=== PATIENT | female | born 2000 | race Two or more races ===

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

== ENCOUNTER → 2022-08-01 13:49 | Outpatient (BNVA) | payer OTHER, SELFPAY | PROVIDERS: PCP Hospitalist; Visit Provider Advanced Practice Midwife | DX: Z30.09 Encounter for other general counseling and advice on contraception (principal); G43.909 Migraine, unspecified, not intractable, without status migrainosus | CPT/HCPCS: 99202 ==

== ENCOUNTER 2023-02-22 10:11 | Outpatient (AMB) | payer OTHER, SELFPAY ==
--- NOTE | 2023-02-22 10:59 | AM.OFFWIN_ITS ---
Intake Vital Signs 02/22/23 11:06 Height 5 ft 3 in Weight 42.184 kg BMI 16.5 BP 100/60 Blood Pressure Location Lt brachial Position Sitting Pulse 70 Pulse Source Pulse Oximeter Temp 97.7 F Temp Source Temporal Artery Scan Intake Visit Reasons: EP Late on Period Intake Note: Pt is here c/o being late on her period for more than two weeks. Pt states she is sexually active and is not currently on control. Pt states she has a burning sensation when urinating. Patient Tobacco Use Status: Never used Tobacco Allergies No Known Allergies Allergy (Verified 02/22/23 11:05) Do you need a note to return to daycare/school/sports/work: No HPI HPI Comments History of Present Illness Details 22-year-old female presents with dysuria and abnormal menstrual cycle. She does not report fevers, chills, abdominal pain, nausea, vomiting, weakness or fatigue. 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 Female Reproductive History Menstrual Age of Menarche: 14 Review of Systems Const Details: Constitutional: No Fever, No Chills Cardiovascular: No Chest Pain, No SOB Respiratory: No Cough, No Dyspnea Gastrointestinal: No Nausea, No Vomiting, No Diarrhea, No abdominal Pain Genitourinary: Positive Dysuria, No Hematuria, positive abnormal menstrual cycle, positive white vaginal discharge Musculoskeletal: No joint pain, No Myalgias, No Joint Swelling Skin: No Skin lacerations, No rash Neuro: No Weakness, No Dizziness, No Headache All systems reviewed & are unremarkable except as noted in HPI and below Physical Exam Vital Signs: Last Vital Signs Temp 97.7 F 02/22/23 11:06 Pulse 70 02/22/23 11:06 BP 100/60 02/22/23 11:06 BMI result Body Mass Index 16.5 Appearance: Alert. Oriented X3. No acute distress. Eyes: Pupils equal, round and reactive to light. Neck: Normal inspection. Neck supple. CVS: Normal heart rate and rhythm. Pulses normal. Respiratory: No respiratory distress. Breath sounds normal. Skin: Skin warm and dry. Normal skin color. Normal skin turgor. Extremities: No lower extremity edema. Gait well balanced well coordinated. Neuro: No motor deficit. No sensory deficit. Cranial nerves 2-12 intact. Results AMB Test Urine AMB Test Urine Negative Last Edit by Zenaida Jacobson CMA on 02/22 11:01 AMB Urinalysis, Automated UA Leukoctes 15 Renata/uL Last Edit by Zenaida Jacobson, JEWELL on 02/22/23 11:23 UA Nitrite Negative Last Edit by Zenaida Jacobson, JEWELL on 02/22/23 11:23 UA Urobilinogen 0.2 mg/dL Last Edit by Zenaida Jacobson, JEWELL on 02/22/23 11:23 UA Protein 30 mg/dL Last Edit by Zenaida Jacobson, JEWELL on 02/22/23 11:23 UA pH 6.0 Last Edit by Zenaida Jacobson CMA on 02/22/23 11:23 UA Blood 200 Ellis/uL Last Edit by Zenaida Jacobson, JEWELL on 02/22/23 11:23 UA Specific [place] 1.030 Last Edit by Zenaida Jacobson CMA on 02/22/23 11:2 3 UA Ketone Negative Last Edit by Zenaida Jacobson CMA on 02/22/23 11:23 UA Bilirubin 0 mg/dL Last Edit by Zenaida Jacobson CMA on 02/22/23 11:23 UA Glucose 0 mg/dL Last Edit by Zenaida Jacobson CMA on 02/22/23 11:23 Results Reviewed Results Reviewed: Laboratory Last Values Urine pH (Auto) 6.0 02/22/23 11:00 Specific [place] (Auto) 1.030 02/22/23 11:00 Urine Protein (Auto) 30 mg/dL 02/22/23 11:00 Glucose (UA)(Auto) 0 mg/dL 02/22/23 11:00 Urine Ketones (Auto) Negative 02/22/23 11:00 Urine Blood (Auto) 200 Ellis/uL 02/22/23 11:00 Urine Nitrite (Auto) Negative 02/22/23 11:00 Urine Bilirubin (Auto) 0 mg/dL 02/22/23 11:00 Urine Urobilinogen (Auto) 0.2 mg/dL 02/22/23 11:00 Leukocyte Esterase (Auto) 15 Renata/uL 02/22/23 11:00 Tst Clinic Negative 02/22/23 11:00 Assessment & Plan Assessment & Plan (1) Dysuria: Code(s): R30.0 - Dysuria Plan: 22-year-old female presents with irregular menstrual cycle. States that she was on p.o. control for several months, discontinued it due to side effects. States that she has had a menstrual cycle as been abnormal for approximately 2 weeks now and noticeable white clumpy discharge. Urinalysis is positive for UTI, plan of care is to treat for UTI with cefuroxime, and suspected yeast infection with Diflucan. Patient respectfully declines pelvic exam at this time. Will add on CT NG. I did discuss control method alternatives, including IUD placement. HCG urinalysis is negative. Will treat with cefuroxime, Pyridium, and Diflucan. Patient does understand that she cannot drink alcohol while taking these medications. Patient verbalized understanding of discharge instructions. Verbalized understandings of signs and symptoms indicating need for emergent intervention. Orders: Orders AMB HCG Urine Test Today Z32.02 - Encounter for test, result negative AMB Urinalysis Automated Today Z13.9 - Encounter for screening, unspecified CT NG by PCR Today R30.0 - Dysuria Medications: New cefuroxime axetil 500 mg PO Q12H 14 tabs 0RF 7 days phenazopyridine (Pyridium) 100 mg PO TID PRN 6 tabs 0RF pain 6 doses fluconazole (Diflucan) 150 mg PO Q3D 3 tabs 0RF 3 days Patient Instructions: You were evaluated for dysuria and vaginal discharge. Urinalysis is positive for UTI. Please take cefuroxime 500 mg every 12 hours for the next 7 days. For suspected candidiasis infection, take Diflucan 150 mg tablet today. If yeast like symptoms persist throughout antibiotic use, take another tablet on day 5, and on the completion of antibiotics. In total you will have 3 tablets of Diflucan. You must not drink any alcohol with this medication. You will have severe side effects if you drink alcohol with this medication. Consider following up with [facility] for IUD placement. Your lab results are pending. We will call you with your results. Thank you for choosing this urgent care for evaluation. Please follow-up with primary care physician as needed. Return to the emergency department for any new, concerning, or worsening symptoms. Coding Level of Care Code Est Pt Level 3 (03927) Diagnoses Dysuria R30.0
[2023-02-22 11:06] VITALS: BP 100/60; PULSE 70; TEMP 36.5; BMI 16.5
== END 2023-02-22 12:55 | disposition home or self-care (01) ==
PROVIDERS: PCP Hospitalist; Visit Provider Nurse Practitioner Family
DX: R30.0 Dysuria (principal); Z32.02 Encounter for pregnancy test, result negative
CPT/HCPCS: 81003; 81025; 99213

== ENCOUNTER 2023-02-22 16:51 | Outpatient (REF) | payer OTHER, SELFPAY ==
[2023-02-22 18:41] LABS: CT PCR NOT DETECTED (Not Detect.); NG PCR NOT DETECTED (Not Detect.)
== END 2023-02-22 16:52 | disposition home or self-care (01) ==
LOC: HO.LNP 16:51
PROVIDERS: Visit Provider Nurse Practitioner Family
DX: R30.0 Dysuria (principal)
CPT/HCPCS: 0353U

== ENCOUNTER 2023-10-04 12:10 | Outpatient (AMB) | payer OTHER, SELFPAY ==
[2023-10-04 12:15] VITALS: BP 100/44; PULSE 69; O2SAT 96; BMI 16.2
--- NOTE | 2023-10-04 12:15 | A.OFFPC_ITS ---
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 Tx by [facility] who rec she get IUD. She does not want this. reports unprotected sex with one partner. Does not want to get preg. Using pull out method. Has period right now Reports scoliosis. No surgery. Does not hurt. DAY and MDD. No meds in past or counseling. Passive suicidal thoughts wo plan. denies hx of attempts of psych admissions. when she feels this way she goes to her fav spot in [place], near the water. She feels connected to water and feels better. admits poor relationship w/ food. was heavier about 2 yrs ago. thought she was eating too much. stopped eating for a period of time to lose wt. then went back to eating just one meal per day, dinner. admits purging. admits body image issues - negative self talk. [facility] Medical History (Updated 10/04/23 @ 13:14 by ELE Adair) Migraines Surgical History (Updated 10/04/23 @ 12:46 by Karis Rosas CMA) No pertinent past surgical history Family History (Updated 10/04/23 @ 12:45 by Karis Rosas CMA) Father Diabetes Other Mental health disorder Social History (Updated 10/04/23 @ 12:47 by Karis Rosas CMA) Household Members: Family Both parents involved: Yes Housing: House Are you a primary property caretaker to a significant other at home: No Do you presently have visiting nurse or other home services: No 75 years or older and lives alone: No Alcohol intake: never Patient Tobacco Use Status: Never used Tobacco e-Cigarette/Vaping Use: Never Used Substance Use Type: Marijuana service: No Current occupational status: employed 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 1. Little interest or pleasure in doing things: more than half the days 2. Feeling down, depressed, or hopeless: more than half the days 3. Trouble falling or staying asleep, or sleeping too much: several days 4. Feeling tired or having little energy: not at all 5. Poor appetite or overeating: nearly every day 6. Feeling bad about yourself - or that you are a failure or have let yourself or your family down: nearly every day 7. Trouble concentrating on things, such as reading the newspaper or watching television: not at all 8. Moving or speaking so slowly that other people could have noticed. Or the opposite - being so fidgety or restless that you have been moving around a lot more than usual: not at all 9. Thoughts that you would be better off or of hurting yourself in some way: nearly every day Total score: 14 Depression Screening Interpretation: Positive Depression Screening Done: Yes 91980 - PHQ-9 Billing: Yes Source: Developed by Drs. Leonidas Tidwell, Inge Anthony, Prakash Langston and colleagues, with an educational koki from [employer]. Thrive Questionnaire Date Thrive assessed: 10/04/23 I am a: Patient What is your living situation today?: I have a steady place to live Within the past 12 months, did the food you bought not last and you didn't have the money to get more?: Never true Within the past 12 months, did you worry whether your food would run out before you got money to buy more?: Never true Do you have trouble paying for medicines?: No Do you have trouble getting transportation to medical appointments?: No Do you have trouble paying your heating and electricity bill?: Yes Do you have trouble taking care of your child, family member or friend?: No Do you have trouble with day-to-day activities such as bathing, preparing meals, shopping, managing finances, etc.?: No Are you currently unemployed and looking for a job?: No Are you interested in more education?: No Please select the resources that you would like help with: Utilities Currently or been in a relationship where the following occur: controlled financially THRIVE Score: 2 AUDIT C Alcohol Use Questionnaire (AUDIT-C) 1. How often do you have a drink containing alcohol?: Never 2. How many drinks containing alcohol do you have on a typical day when you are drinking?: 1 or 2 3. How often do you have six or more drinks on one occasion?: Never Total Score: 0 Score Reviewed/Action Taken: Yes DAY-7 AMB Questionnaire DAY-7 Feeling nervous, anxious, or on edge: 3 = Nearly every day Not being able to stop or control worryin = Nearly every day Worrying too much about different things: 2 = More than half the days Trouble relaxin = More than half the days Being so restless that it is hard to sit still: 2 = More than half the days Becoming easily annoyed or irritable: 3 = Nearly every day Feeling afraid as if something awful might happen: 3 = Nearly every day Total DAY-7 score (0-4 normal; 5-9 mild; 10-14 moderate; 15-21 severe): 18 Source: Developed by Drs. Leonidas Tidwell, Inge Anthony, Prakash Langston and colleagues, with an educational koki from [employer]. DAY-7 Assessment Billing DAY-7 Assessment Tool: DAY-7 Assessment 92287 Review of Systems Const All systems reviewed & are unremarkable except as noted in HPI and below Physical exam (Primary Care) Vital Signs: Last Vital Signs BP 100/44 L 10/04/23 12:15 Pulse Ox 96 10/04/23 12:15 Oxygen Delivery Method Room Air 10/04/23 12:15 BMI result Body Mass Index 16.2 BMI Assessment/Plan discussion: Low BMI Low, Plan discussed: other Tobacco/Smoking Status: Tobacco use Status Patient Tobacco Use Status Never used Tobacco 10/04/23 12:26 e-Cigarette/Vaping Use Never Used 10/04/23 12:26 PHQ-9: PHQ-9 Score PHQ-9: Total score 14 10/04/23 12:42 Depression Screening Interpretation: Positive Currently or been in a relationship where the following occur: controlled financially Const Other: awake alert, thin and frail Mucous membranes dry RRR LS CTAB dim throughout Abd soft, mild tenderness LLQ wo rebound, normoactive bs x 4 Quiet, soft spoken, crying at times, anxious,appropriate and polite Assessment and Plan Assessment & Plan (1) MDD (major depressive disorder), recurrent episode: Comment: check labs today and bring back in 1 week for close f/u referral to counseling crisis hot line Code(s): F33.9 - Major depressive disorder, recurrent, unspecified Qualifiers: Major depression episode severity: moderate Qualified Code(s): F33.1 - Major depressive disorder, recurrent, moderate (2) DAY (generalized anxiety disorder): Comment: see MDD Code(s): F41.1 - Generalized anxiety disorder (3) Underweight on examination: Comment: with eating disorder behaviors of restriction and binging. check labs bring back in 1 week refer to counseling Code(s): R63.6 - Underweight (4) Vaginal yeast infection: Comment: check labs to r/o diabetes Code(s): B37.31 - Acute candidiasis of vulva and vagina Plan: Total time spent caring for the patient today was 60 minutes. This includes time spent before the visit reviewing the chart, time spent during the visit, and time spent after the visit on documentation Total time spent caring for the patient today was [] minutes. This includes time spent before the visit reviewing the chart, time spent during the visit, and time spent after the visit on documentation Orders: Orders LDL Cholesterol Direct Today F33.9 - Major depressive disorder, recurrent, unspecified, F41.1 - Generalized anxiety disorder Microalbumin, Random (w Creat) Today F33.9 - Major depressive disorder, recurrent, unspecified, F41.1 - Generalized anxiety disorder Zinc Today F33.9 - Major depressive disorder, recurrent, unspecified, F41.1 - Generalized anxiety disorder Vitamin B12 and Folate Today F33.9 - Major depressive disorder, recurrent, unspecified, F41.1 - Generalized anxiety disorder Magnesium Today F33.9 - Major depressive disorder, recurrent, unspecified, F41.1 - Generalized anxiety disorder HIV Ab/Ag Today F33.9 - Major depressive disorder, recurrent, unspecified, F41.1 - Generalized anxiety disorder Comprehensive Met. Panel Today F33.9 - Major depressive disorder, recurrent, unspecified, F41.1 - Generalized anxiety disorder Vitamin D 1,25 dihydroxy Today F33.9 - Major depressive disorder, recurrent, unspecified, F41.1 - Generalized anxiety disorder Complete Blood Count no Diff Today F33.9 - Major depressive disorder, recurrent, unspecified, F41.1 - Generalized anxiety disorder IRON PROFILE Today F33.9 - Major depressive disorder, recurrent, unspecified, F41.1 - Generalized anxiety disorder Vitamin C Today F33.9 - Major depressive disorder, recurrent, unspecified, F41.1 - Generalized anxiety disorder Hemoglobin A1c Today F33.9 - Major depressive disorder, recurrent, unspecified, F41.1 - Generalized anxiety disorder UA and rflx microscopic Today F33.9 - Major depressive disorder, recurrent, unspecified, F41.1 - Generalized anxiety disorder Referrals Counseling Referral F33.9 - Major depressive disorder, recurrent, unspecified, F41.1 - Generalized anxiety disorder Patient Instructions: Crisis Hotlines Suicide prevention, domestic violence, and other crisis hotlines for youth, young adults, and their friends and families. [facility] [employer] [facility]: The [employer] [facility] helps youth who have run away, are thinking about running away, or who already ran away but are ready to come home. Parents and guardians can also contact the hotline if they are worried about their child running away or if their child has already left home. The hotline is available 24 hours a day, seven days a week. Youth, parents, and guardians can also use the online chat feature on the [facility] website to ask for help and get support, [place] [address]. [facility] National Suicide Prevention Lifeline: The National Suicide Prevention Lifeline is a network of local crisis centers that are available 04/02 to provide support for youth and adults who are in any kind of emotional crisis. In addition to the main hotline number listed above, there are several other numbers to call depending on your needs: Eritrean Language: Deaf and Hard of Hearin1-862.414.1545 Veterans: Disaster Distress: Anyone can also use their online chat feature on their website. National Suicide Prevention Lifeline [facility] Helpline: The [facility] Helpline is available to anyone in [place] who is need of emotional support. Anyone can call or text the helpline to receive help from specially trained volunteers. [place] high school and college students can also get online support through the [employer]_ program. For high school students, volunteers ages 15-18 are available Saturday- from 6-9PM. For college students, [employer] is available Saturday-Saturday from 5-9PM. The [employer] - The [employer] is a 04/02 crisis intervention and suicide prevention hotline for LGBTQ youth. Youth can also text [employer] to for support, or use the online chat feature on the [employer]'s website. [employer] is available Saturday-Saturday between 3-10PM. [employer] is available seven days a week between 3-10PM. Safe[employer]: SafeLink is for anyone who is being affected by domestic violence or dating violence. Volunteers at [employer] speak Irish and Eritrean, and [employer] also has a service that can provide translation in more than 130 languages. TTY: Coding Level of Care Code Est Pt Level 5 (55165) Diagnoses Moderate episode of recurrent major depressive disorder F33.1 Major depression episode severity: moderate DAY (generalized anxiety disorder) F41.1 Underweight on examination R63.6 Vaginal yeast infection B37.31 Additional Codes DAY-7 Assessment Billing - DAY-7 Assessment Tool: DAY-7 Assessment [id number] ([id number])
== END 2023-10-04 12:51 | disposition home or self-care (01) ==
PROVIDERS: PCP Family Medicine; Visit Provider Nurse Practitioner Family
DX: F33.1 Major depressive disorder, recurrent, moderate (principal); F41.1 Generalized anxiety disorder; R63.6 Underweight; B37.31 Acute candidiasis of vulva and vagina
CPT/HCPCS: 99215

== ENCOUNTER 2023-10-04 12:42 | Outpatient (REF) | payer OTHER, SELFPAY | END 2023-10-04 12:43 | disposition home or self-care (01) | LOC: HO.WFDLDS 12:42 | PROVIDERS: Visit Provider Nurse Practitioner Family | DX: Z13.89 Encounter for screening for other disorder (principal) ==

== ENCOUNTER 2024-10-14 08:16 | Outpatient (AMB) | payer OTHER, SELFPAY ==
--- NOTE | 2024-10-14 08:18 | A.OFFPC_ITS ---
Vital Signs 10/14/24 08:23 Height 5 ft 4 in Weight 96 lb BMI 16.5 BP 99/56 L Blood Pressure Location Rt brachial Position Sitting Respiration 16 Pulse 70 Pulse Source Pulse Oximeter Temp 98.2 F Temp Source Oral Pulse Oximetry (%) 100 Oxygen Delivery Method Room Air Intake Visit Reasons: Annual PE Intake Note: patient here for CPE Director Long Term Care Required: No Is last menstrual period known: Yes Last menstrual period: 09/16/24 Post menopausal: No Patient : No Allergies No Known Allergies Allergy (Verified 10/14/24 08:31) Medication List - Last Reconciled 10/14/24 by SHWETHA Adair- No Known Home Meds Tobacco use date assessed: 10/14/24 Dental Screening Dental Screen Date: 10/14/24 Did you have a dental visit in the last 12 months?: No Did you have a dental problem in the last 6 months where you did not have access to dental care?: No Was dental information given to patient?: Patient has dentist HPI HPI Comments History of Present Illness Details 23-year-old female with migraines, scoli osis, MDD, DAY, underweight, scoliosis Social: brother & sister; lives w/ Mom. 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 Eyes: wore glasses in childhood, poor vision; needs new eye exam LMP 1 month; denies chance of preg Has some burning after intercourse. Also has some abd pain after intercourse Would like STD screening Plan urine HCG negative today. Start prozac 10 mg QD Refer back to counseling Flu and Tdap today Opto referral Labs and STD testing RTO 6 week fu prozac start, sooner PRN An additional 30 minutes was spent addressing the problem(s) noted at todays visit. This includes time spent before the visit reviewing the chart, time spent during the visit, and time spent after the visit on documentation reviewing laboratory results, diagnostic imaging, medications, performing a medically necessary evaluation, counseling on diagnoses, care coordination, ordering appropriate tests, ordering appropriate medications, review of tests performed by other providers, reporting test results with the patient, communication with other healthcare providers. [facility], [facility] Medical History (Updated 10/14/24 @ 08:52 by Jessica Kaufman [facility]) Migraines Surgical History (Updated 10/04/23 @ 12:46 by Karis Rosas CMA) No pertinent past surgical history Family History (Updated 10/04/23 @ 12:45 by Karis Rosas CMA) Father Diabetes Other Mental health disorder Social History (Updated 10/04/23 @ 12:47 by Karis Rosas CMA) Household Members: Family Housing: House Are you a primary memory care program director to a significant other at home: No Do you presently have visiting nurse or other home services: No Alcohol intake: never Patient Tobacco Use Status: Never used Tobacco e-Cigarette/Vaping Use: Never Used Substance Use Type: Marijuana service: No Current occupational status: employed 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 1. Little interest or pleasure in doing things: not at all 2. Feeling down, depressed, or hopeless: several days 3. Trouble falling or staying asleep, or sleeping too much: several days 4. Feeling tired or having little energy: several days 5. Poor appetite or overeating: not at all 6. Feeling bad about yourself - or that you are a failure or have let yourself or your family down: nearly every day 7. Trouble concentrating on things, such as reading the newspaper or watching television: not at all 8. Moving or speaking so slowly that other people could have noticed. Or the opposite - being so fidgety or restless that you have been moving around a lot more than usual: not at all 9. Thoughts that you would be better off or of hurting yourself in some way: several days Total score: 7 Depression Screening Interpretation: Positive Depression Screening Follow-up: Existing condition and Community Mental Health Worker F/U Depression Screening Done: Yes 23237 - PHQ-9 Billing: Yes Source: Developed by Drs. Leonidas Tidwell, Inge Anthony, Prakash Langston and colleagues, with an educational koki from [employer]. Thrive Questionnaire Date Thrive assessed: 10/14/24 I am a: Patient What is your living situation today?: I have a steady place to live Within the past 12 months, did the food you bought not last and you didn't have the money to get more?: Often true Within the past 12 months, did you worry whether your food would run out before you got money to buy more?: Often true Do you have trouble paying for medicines?: I choose not to answer this question Do you have trouble getting transportation to medical appointments?: No Do you have trouble paying your heating and electricity bill?: I choose not to answer this question Do you have trouble taking care of your child, family member or friend?: No Do you have trouble with day-to-day activities such as bathing, preparing meals, shopping, managing finances, etc.?: No Are you currently unemployed and looking for a job?: No Are you interested in more education?: No Please select the resources that you would like help with: Food Currently or been in a relationship where the following occur: I choose not to answer THRIVE Score: 2 AUDIT C Alcohol Use Questionnaire (AUDIT-C) 1. How often do you have a drink containing alcohol?: Monthly or less 2. How many drinks containing alcohol do you have on a typical day when you are drinking?: 1 or 2 3. How often do you have six or more drinks on one occasion?: Never Total Score: 1 Score Reviewed/Action Taken: Yes DAY-7 AMB Questionnaire DAY-7 Date DAY - 7 assessed: 10/14/24 Feeling nervous, anxious, or on edge: 1 = Several days Not being able to stop or control worryin = Several days Worrying too much about different things: 1 = Several days Trouble relaxin = Nearly every day Being so restless that it is hard to sit still: 1 = Several days Becoming easily annoyed or irritable: 3 = Nearly every day Feeling afraid as if something awful might happen: 0 = Not at all Total DAY-7 score (0-4 normal; 5-9 mild; 10-14 moderate; 15-21 severe): 10 Source: Developed by Drs. Leonidas Tidwell, Inge Anthony, Prakash Langston and colleagues, with an educational koki from [employer]. DAY-7 Assessment Billing DAY-7 Assessment Tool: DAY-7 Assessment 47574 Physical exam (Primary Care) Vital Signs: Last Vital Signs Temp 98.2 F 10/14/24 08:23 Pulse 70 10/14/24 08:23 Resp 16 10/14/24 08:23 BP 99/56 L 10/14/24 08:23 Pulse Ox 100 10/14/24 08:23 Oxygen Delivery Method Room Air 10/14/24 08:23 BMI result Body Mass Index 16.5 BMI Assessment/Plan discussion: Low BMI Low, Plan discussed: other Tobacco/Smoking Status: Tobacco use Status Tobacco use date assessed 10/14/24 10/14/24 08:25 Patient Tobacco Use Status Never used Tobacco 10/14/24 08:21 e-Cigarette/Vaping Use Never Used 10/14/24 08:21 PHQ-9: PHQ-9 Score PHQ-9: Total score 7 10/14/24 08:59 Depression Screening Interpretation: Positive Depression Screening Follow-up: Existing condition and Community Mental Health Worker F/U Thrive Assessment: Date of Thrive Assessment Date Thrive assessed 10/14/24 10/14/24 08:25 Currently or been in a relationship where the following occur: I choose not to answer Const Other: General: Thin frail. Appears stated age. Head: Normocephalic, atraumatic. Eyes: Pupils are equal, round and reactive to light and accommodation. Conjunctivae are clear. Vision grossly normal. Ears: TMs clear AU, EACS WNL Nose: Patent, without discharge. Mouth: There are no ulcers or lesions noted. No inflammation, no post nasal drip, no plaques nor exudates. c/o pain over L TMJ Neck: Supple, no adenopathy or thyromegaly. Lungs: Clear to auscultation bilaterally. No rales, rhonchi or wheeze noted. Good air flow in all cash. Heart: Regular rate and rhythm. No murmurs, click, rubs or gallops are noted. Abdomen: Bowel sounds present in all quadrants. The abdomen is soft, nontender, with no masses or organomegaly noted. No hernias are noted. Musculoskeletal: Joints are nontender, without swelling, redness, or effusions. Range of motion is observed to be normal. Pulses: Peripheral pulses are equal and palpable bilaterally. Extremities: No clubbing, cyanosis nor edema is noted. Neurologic: Gait and station normal. Cranial Nerves 2-12 intact. Motor strength grossly symmetrical and intact. No sensory loss. Balance normal. Skin: No rashes, ulcers, or lesions noted. Turgor is good. Skin color is good. Hair and nails are without abnormalities. Psych: Gaurded, soft spoken Office Procedures Flu Questionnaire Does the patient have a severe egg allergy?: No Does the patient have severe life threatening allergies?: No Does the patient have a fever or illness today?: No Has the patient ever had Guillain-[place] Syndrome?: No Has the patient ever had any past reaction to a flu shot?: No Results AMB Test Urine AMB Test Urine Negative Last Edit by Richelle Kilgore MA on 5 09:26 Immunizations Fluarix Triv [id number] (PF) 45 mcg (15 mcg x 3)/0.5 mL IM syringe Performing Provider: ELE Adair Performing Location: [facility] [place] [facility] Administered by: Adelaida Arrington RN on 10/14/24 08:57 Dose Route Admin Location Dispensed Lot Number Expiration Date [facility] Administrative Secretary 0.5 mL IM Left Deltoid 0.5 mL [id number] 01/11/25 99012-129-12 [employer] VIS Given Date VIS Provided VIS Publication Date 10/14/24 Single Vaccine 21 Eligibility Eligibility Date Funding Source Not [facility] Eligible 10/14/24 Private Administration Comments: Patient received two vaccines in the left deltoid. Flu shot first and the TDaP below and slightly to the right. Boostrix Tdap 2.5 Lf unit-8 mcg-5 Lf/0.5 mL intramuscular syringe Performing Provider: ELE Adair Performing Location: [facility] [place] Family [facility] Administered by: Adelaida Arrington RN on 10/14/24 08:57 Dose Route Admin Location Dispensed Lot Number Expiration Date [facility] Administrative Secretary 0.5 mL IM Left Deltoid 0.5 mL [id number] 10/03/26 82655-134-25 Patient Conversation [employer] VIS Given Date VIS Provided VIS Publication Date 10/14/24 Single Vaccine 21 Eligibility Eligibility Date Funding Source Not [facility] Eligible 10/14/24 Private Administration Comments: Patient received two vaccines in the left deltoid. Flu shot first and the TDaP below and slightly to the right. Results Reviewed Results Reviewed: Laboratory Last Values [facility] Negative 10/14/24 09:21 Coding Level of Care Code Est Pt Level 4 (18029) Est Pt Prev Care 18-39y(93789) Diagnoses Encounter for general adult medical examination with abnormal findings Z00.01 DAY (generalized anxiety disorder) F41.1 Moderate episode of recurrent major depressive disorder F33.1 Major depression episode severity: moderate Underweight on examination R63.6 Dysuria R30.0 Influenza vaccination administered at current visit Z23 Need for Tdap vaccination Z23 Encounter for screening examination for sexually transmitted disease Z11.3 Arthralgia of left temporomandibular joint M26.622 Laterality: left Additional Codes DAY-7 Assessment Billing - DAY-7 Assessment Tool: DAY-7 Assessment 38201 ([id number]) PHQ-9 - 80452 - PHQ-9 Billing: Yes ([id number]) Assessment & Plan Assessment & Plan (1) Encounter for general adult medical examination with abnormal findings: Code(s): Z00.01 - Encounter for general adult medical examination with abnormal findings (2) DAY (generalized anxiety disorder): Comment: see MDD Code(s): F41.1 - Generalized anxiety disorder Category: Medical (3) MDD (major depressive disorder), recurrent episode: Code(s): F33.9 - Major depressive disorder, recurrent, unspecified Category: Medical Qualifiers: Major depression episode severity: moderate Qualified Code(s): F33.1 - Major depressive disorder, recurrent, moderate (4) Underweight on examination: Comment: with eating disorder behaviors of restriction and binging. refer to counseling Code(s): R63.6 - Underweight Category: Medical (5) Dysuria: Code(s): R30.0 - Dysuria Category: Medical (6) Influenza vaccination administered at current visit: Code(s): Z23 - Encounter for immunization Category: Medical (7) Need for Tdap vaccination: Code(s): Z23 - Encounter for immunization Category: Medical (8) Encounter for screening examination for sexually transmitted disease: Code(s): Z11.3 - Encounter for screening for infections with a predominantly sexual mode of transmission Category: Medical (9) TMJ arthralgia: Comment: wear mouth guard OTC NSaids FU with dentist avoid clenching Code(s): M26.629 - Arthralgia of temporomandibular joint, unspecified side Category: Medical Qualifiers: Laterality: left Qualified Code(s): M26.622 - Arthralgia of left temporomandibular joint Plan . Orders: Orders Comprehensive Met. Panel Today R30.0 - Dysuria Hemoglobin A1c Today R30.0 - Dysuria Microalbumin, Random (w Creat) Today R30.0 - Dysuria Complete Blood Count no Diff Today R30.0 - Dysuria CT NG by PCR Today R30.0 - Dysuria Lipid Panel Today R30.0 - Dysuria TSH reflex Free T4 Today R30.0 - Dysuria Vitamin B12 and Folate Today R30.0 - Dysuria Vitamin D 25-OH Total Today R30.0 - Dysuria Ferritin Today R30.0 - Dysuria UA CC w/rflx Micro + Cult Today R30.0 - Dysuria Influenza [id number] Immunization Today Z23 - Encounter for immunization TDaP Immunization Today Z23 - Encounter for immunization AMB HCG Urine Test Today Z32.02 - Encounter for test, result negative Referrals Optometry Referral H53.8 - Other visual disturbances Nurse Navigator Referral F33.1 - Major depressive disorder, recurrent, mod erate, F41.1 - Generalized anxiety disorder WEB OPERATIONS SPECIALIST Referral Z12.4 - Encounter for screening for malignant neoplasm of cervix Medications: New fluoxetine (Prozac) 10 mg PO DAILY 30 caps 1RF Patient Instructions: Health screenings for women You should visit your health care provider from time to time, even if you are healthy. The purpose of these visits is to: Screen for medical issues Assess your risk for future medical problems Encourage a healthy lifestyle Update vaccinations and other preventive care services Help you get to know your provider in case of an illness Information Even if you feel fine, you should still see your provider for regular checkups. These visits can help you avoid problems in the future. For example, the only way to find out if you have high blood pressure is to have it checked regularly. High blood sugar and high cholesterol levels also may not have any symptoms in the early stages. A simple blood test can check for these conditions. There are specific times when you should see your provider or receive specific health screenings. The [place] Preventive Services Task Force publishes a list of recommended screenings. Below are screening guidelines for women ages 18 to 39. BLOOD PRESSURE SCREENING Your blood pressure should be checked at least once every 3 to 5 years if: Your blood pressure is in the normal range (top number less than 120 mm Hg and bottom number less than 80 mm Hg) You don't have risk factors for high blood pressure Ask your provider if you need your blood pressure checked more often if: The top number is 120 to 129 mm Hg or the bottom number is 70 to 79 mm Hg You have diabetes, heart disease, kidney problems, are overweight, or have certain other health conditions You have a first-degree relative with high blood pressure You are Black You had high blood pressure during a If the top number is 130 mm Hg or greater or the bottom number is 80 mm Hg or greater, this is considered stage 1 hypertension. Schedule an appointment with your provider to learn how you can reduce your blood pressure. Watch for blood pressure screenings in your area. Ask your provider if you can stop in to have your blood pressure checked. BREAST CANCER SCREENING Experts do not agree about the benefits of breast self-exams in finding breast cancer or saving lives. Talk to your provider about what is best for you. A screening mammogram is not recommended for most women under age 40. Your provider may discuss and recommend mammograms, MRI scans, or ultrasounds if you have an increased risk for breast cancer, such as: A mother or sister who had breast cancer at a young age (most often starting screening earlier than the age the close relative was diagnosed) You carry a high-risk genetic marker CERVICAL CANCER SCREENING Cervical cancer screening should start at age 21 years unless your provider advises otherwise. After the first test: Women ages 21 through 29 should have a Pap test every 3 years. Exoprts do not agree on whether HPV testing is recommended for this age group. Women ages 30 through 65 should be screened with either a Pap test every 3 years or the HPV test every 5 years or both tests every 5 years (called cotesting ). Women who have been treated for precancer (cervical dysplasia) should continue to have Pap tests for 20 years after treatment or until age 65, whichever is longer. If you have had your uterus and cervix removed (total hysterectomy), and you have not been diagnosed with cervical cancer or precancer (high grade cervical neoplasia), you do not need cervical cancer screening. CHOLESTEROL SCREENING Cholesterol screening should begin at: Age 45 for women with no known risk factors for coronary heart disease Age 20 for women with known risk factors for coronary heart disease Repeat cholesterol screening should take place: Every 5 years for women with normal cholesterol levels More often if changes occur in lifestyle (including weight gain and diet) More often if you have diabetes, heart disease, kidney problems, or certain other conditions DIABETES SCREENING You should be screened for diabetes starting at age 35 and then repeated every 3 years if you have no risk factors for diabetes. Screening may need to start earlier and be repeated more often if you have other risk factors for diabetes, such as: You have a first degree relative with diabetes. You are overweight or have obesity. You have high blood pressure, prediabetes, or a history of heart disease. Screening for diabetes should be done if you are planning to become and you are overweight and have other risk factors such as high blood pressure. DENTAL EXAM Go to the dentist once or twice every year for an exam and cleaning. Your dentist will evaluate if you need more frequent visits. EYE EXAM Have an eye exam every 5 to 10 years before age 40. If you have vision problems, have an eye exam every 2 years or more often if recommended by your provider. You should have an eye exam that includes an examination of your retina (back of your eye) at least every year if you have diabetes. IMMUNIZATIONS Commonly needed vaccines include: Flu shot: get one every year. COVID-19 vaccine: ask your provider what is best for you. Tetanus-diphtheria and acellular pertussis (Tdap) vaccine: have one at or after age 19 as one of your tetanus-diphtheria vaccines if you did not receive it as an adolescent. Tetanus-diphtheria: have a booster (or Tdap) every 10 years. Varicella vaccine: receive 2 doses if you never had chickenpox or the varicella vaccine. Hepatitis B vaccine: receive 2, 3, or 4 doses, depending on your exact circumstances. Measles, mumps, and rubella (MMR) vaccine: receive 1 to 2 doses if you are not already immune to MMR. Your provider can tell you if you are immune. Ask your provider about the human papillomavirus (HPV) vaccine if: You have not received the HPV vaccine in the past You have not completed the full vaccine series (you should catch up on this shot) Ask your provider if you should receive other immunizations if you have certain health problems that increase your risk for some diseases such as pneumonia. INFECTIOUS DISEASE SCREENING Women who are sexually active should be screened for chlamydia and gonorrhea up until age 25. Women 25 years and older should be screened for chlamydia and gonorrhea if at high risk. Screening for hepatitis C: All adults ages 18 to 79 should get a one-time test for hepatitis C. people should be screened at every . Screening for human immunodeficiency virus (HIV): All people ages 15 to 65 should get a one-time test for HIV. Depending on your lifestyle and medical history, you may also need to be screened for infections such as syphilis and HIV, as well as other infections. PHYSICAL EXAM All adults should visit their provider from time to time, even if they are healthy. The purpose of these visits is to: Screen for disease Assess your risk of future medical problems Encourage a healthy lifestyle Update your vaccinations and other preventive care services Maintain a relationship with a provider in case of an illness Your height, weight, and BMI should be checked at every exam. During your exam, your provider may ask you about: Depression and anxiety Diet and exercise Alcohol and tobacco use Safety issues, such as using seat belts, smoke detectors, and intimate partner violence Your medicines and risk for interactions SKIN SELF-EXAM Your provider may check your skin for signs of skin cancer, especially if you're at high risk, such as if you: Have had skin cancer before Have close relatives with skin cancer Have a weakened immune system OTHER SCREENING Talk with your provider about colon cancer screening if you have a strong family history of colon cancer or polyps, or if you have had inflammatory bowel disease or polyps yourself. Routine bone density screening of women under 40 is not recommended.
[2024-10-14 08:23] VITALS: BP 99/56; PULSE 70; RESP 16; TEMP 36.8; O2SAT 100; BMI 16.5
--- OUTSIDE RECORDS SUMMARY | 2024-10-14 08:28 | XMS_ITS | Encounter Summary ---
Author Organization [facility] Address [address] [place] [address] Phone Care Team Providers Care Teacher Dramatics Name Role Phone Gail Mari NP Primary Care Provider [phone] Encounter Details Date Type Department Care Team (Late st Contact Info) Description 02/28/2017 Conversion Encounter [facility] - [address] [id number] Social History Tobacco Use Types Packs/Day Years Used Date Smoking Tobacco: Never Comments:Never smoker Comments Unknown Sex and Gender Information Value Date Recorded Sex Assigned at Not on file Legal Sex Female 5:02 PM EDT Gender Identity Not on file Sexual Orientation Not on file documented as of this encounter Plan of Treatment Not on file documented as of this encounter Visit Diagnoses Not on filedocumented in this encounter Care Teams Teacher Dramatics Relationship Specialty Start Date End Date Gail Mari NP PCP - General 02/22/17 08/11/20 documented as of this encounter
--- OUTSIDE RECORDS SUMMARY | 2024-10-14 08:28 | XMS_ITS | Encounter Summary ---
Author Organization [facility] Address [address] [place], [place] [id number] Phone Care Team Providers Care Poultry Husbandry Worker Name Role Phone Gail Mari NP Primary Care Provider [phone] Encounter Details Date Type Department Care Team (Late st Contact Info) Description 09/09/2014 Documentation [facility] [place] [address] [place] [address] Family Medicine, Physician [address] [place] [address] Social History Tobacco Use Types Packs/Day Years Used Date Smoking Tobacco: Never Assessed Comments Unknown Sex and Gender Information Value Date Recorded Sex Assigned at Not on file Legal Sex Female 5:02 PM EDT Gender Identity Not on file Sexual Orientation Not on file documented as of this encounter Plan of Treatment Not on file documented as of this encounter Visit Diagnoses Not on filedocumented in this encounter Care Teams Poultry Husbandry Worker Relationship Specialty Start Date End Date Gail Mari NP PCP - General 02/22/17 08/11/20 documented as of this encounter
--- OUTSIDE RECORDS SUMMARY | 2024-10-14 08:28 | XMS_ITS | Clinical Summary ---
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 Immunizations Immunization Administration Dates Next Due DTaP 5 03/04/2007, 4,05/18/2003,03/22,01/11/2003 H1N1 06/14/2009 HPV Vaccine 9 Valent 09/07/2016,08/25/2015 Hep A, ped/adol 08/25/2015,08/03/2014 Hep B, ped/adol 05/18/2003,03/16/2003,01/11/2003 Hib (PRP-T) 02/08/2004,03/16/2003,01/11/2003 IPV 03/04/2007, 3,03/22/2003,01/11 Influenza, injectable, MDCK, preservative free, quadrivalent 09/07/2016 Influenza, injectable, quadrivalent 08/03/2014 Influenza, injectable, quadr ivalent, preservative free 05/11/2020,11/11/2018,11/08/2017 Influenza, injectable, trivalent 010,07/07/2008,06/10/2007,06/10,05/07/2006 Influenza, intranasal, quadrivalent 08/25/2015 Influenza, intranasal, trivalent 06/29/2011,03/15 MMR 03/04/2007,11/08/2003 Meningococcal Conj (Menactra) MCV4P 11/11/2018,0 08/03/2014 Pneumococcal Conjugate 02/08/2004,03/16/2003, Tdap 08/03/2014 Varicella 03/04/2007,11/08/2003 Family History Medical History Relation Name Comments Seizures Brother Christopher Sharma No Known Problems Father Nikita Sharma No Known Problems Mother Leeann Mercado No Known Problems Sister Parvin Sharma Relation Name Status Comments Brother Christopher Sharma Alive Brother: Seiz ure disorder Father Nikita Sharma Alive Mother Leeann Mercado Alive Mother: Migraines Other Family history of Diabetes mellitus Sister Parvin Sharma Alive Sister: Alive a nd well Social History Tobacco Use Types Packs/Day Years Used Date Smoking Tobacco: Never Smokeless Tobacco: Never Tobacco Cessation:Counseling Given: Yes Comments:Never smoker Alcohol Use Standard Drinks/Week Comments Never 0 (1 standard drink = 0.6 oz pur e alcohol) Hunger/Food Answer Date Recorded In the last 12 months, did y ou or your family ever eat less than you felt you should because there wasn't enough money for food? No 05/11/2020 Stable Housing Answer Date Recorded Are you worried that in the next 2 months you may not have stable housing? No 05/11/2020 Transportation Concerns Answer Date Rec orded In the last 12 months, have you or your family ever had to go without healthcare because you didn't have a way to get there? No 05/11/2020 Hazards in Home Answer Date Recorded Think about the place you li ve. Do you have problems with any of the following? Pests (mice or roaches), mold, no/not working smoke detectors, water leaks, no window guards. No 2019 Financing Utilities Answer Date Recorde d In the last 12 months, has t he electric, gas, oil, or water company threatened to shut off your services in your home? No 05/11/2020 Safety at Home Answer Date Recorded Are you or your family worried about feeling saf e in your home? No 05/11/2020 Outside Support Answer Date Recorded Do you feel that you need mo re support from other people or programs to help you care for yourself or your family? No 05/11/2020 Understanding Health Concerns Answer Da te Recorded Do you need help understandi ng your or your child's healthcare needs (diagnosis, medications, plan, etc.)? No 05/11/2020 Financing Health Concerns Answer Date R ecorded In the last 12 months, was t here a time when your child needed to see a doctor or get medications or supplies but could not because of cost? No 05/11/2020 Missing School or Work Answer Date Salbador rded Did you or your child miss s chool or work because of a health problem that could have been avoided? No 05/11/2020 Comments No Sex and Gender Information Value Date Recorded Sex Assigned at Not on file Legal Sex Female 5:02 PM EDT Gender Identity Not on file Sexual Orientation Not on file Last Filed Vital Signs Vital Sign Reading Time Taken Comments Blood Pressure 102/64 05/11/2020 1:40 PM EDT Pulse 70 05/11/2020 1:40 PM EDT Temperature 36 ??C (96.8 ??F) 05/11/2020 1:40 PM EDT Respiratory Rate - - Oxygen Saturation - - Inhaled Oxygen Concentration - - Weight 44.9 kg (99 lb) 05/11/2020 1:40 PM EDT Height 161.9 cm (5' 3.75 ) 05/11/2020 1:40 PM ED T Body Mass Index 17.13 05/11/2020 1:40 PM EDT Plan of Treatment Health Maintenance Due Date Last Done Comments Men B Vaccine (1 of 2 - Standard) 2018 Influenza Vaccines (#1) 2024 05/11/20, 11/11/2018, 11/08/2017, Additional history exists COVID-19 Vaccine (3 - 2023-2 5 season) 2024 12/07/2020, 11/16/2020 DTaP,Tdap,and Td Vaccines (7 - Td or Tdap) 08/03/2024 08/03/2014, 03/04/2007, 02/08/2004, Additional history exists Hepatitis B Vaccines Completed 05/18/2003, 03/16/2003, 01/11/2003 HIB Vaccines Completed 02/08/2004, 08/2002, 01/11/2003 Pneumococcal Vaccine Completed 02/08/2004, 03/16/2003, 01/11/2003 IPV Vaccines Completed 03/04/2007, 10/2002, 03/22/2003, Additional history exists MMR Vaccines Completed 03/04/2007, 11/08/2003 Varicella Vaccines Completed 03/04/2007, 11/08/2003 Hepatitis A Vaccines Completed 08/25/2015, 08/03/19 15 HPV Vaccines Completed 09/07/2016, 08/25/2015 Meningococcal Vaccine Completed 11/11/2018, 015 Insurance [facility] NON PCC
--- OUTSIDE RECORDS SUMMARY | 2024-10-14 08:28 | XMS_ITS | Encounter Summary ---
Author Organization [facility] Address [address] [place], [place] [id number] Phone Care Team Providers Care Paint Trimmer Pipe Bowls Name Role Phone Gail Mari NP Primary Care Provider [phone] Encounter Details Date Type Department Care Team (Late st Contact Info) Description 01/04/2012 Documentation [facility] [place] [address] [place] [address] Family Medicine, Physician [address] [place] [address] Social History Tobacco Use Types Packs/Day Years [...] on filedocumented in this encounter Care Teams Paint Trimmer Pipe Bowls Relationship Specialty Start Date End Date Gail Mari NP PCP - General 02/22/17 08/11/20 documented as of this encounter
== END 2024-10-14 09:20 | disposition home or self-care (01) ==
LOC: HO.HMCFM 08:17
PROVIDERS: PCP Nurse Practitioner Family; Visit Provider Nurse Practitioner Family
DX: Z00.01 Encounter for general adult medical examination with abnormal findings (principal); R30.0 Dysuria; F41.1 Generalized anxiety disorder; F33.1 Major depressive disorder, recurrent, moderate; R63.6 Underweight; Z23 Encounter for immunization; Z11.3 Encounter for screening for infections with a predominantly sexual mode of transmission; M26.622 Arthralgia of left temporomandibular joint; Z32.02 Encounter for pregnancy test, result negative

== ENCOUNTER 2024-10-14 08:16 | Outpatient (REF) | payer OTHER, SELFPAY ==
--- OUTSIDE RECORDS SUMMARY | 2024-10-14 09:19 | XMS_ITS | Encounter Summary ---
Author Organization [facility] Address [address] [place], [place] [address] Phone Care Team Providers Care County Judge Name Role Phone Gail Mari NP Primary Care Provider [phone] Encounter Details Date Type Department Care Team (Late st Contact Info) Description 09/09/[address] [facility] [place] Family Medicine [address] [place] [address] Family Medicine, Physician [address] [place] [address] Social History Tobacco Use Types Packs/Day Years [...] on filedocumented in this encounter Care Teams County Judge Relationship Specialty Start Date End Date Gail Mari NP PCP - General 02/22/17 08/11/20 documented as of this encounter
--- OUTSIDE RECORDS SUMMARY | 2024-10-14 09:19 | XMS_ITS | Encounter Summary ---
Author Organization [facility] Address [address] [place] [address] Phone Care Team Providers Care Field Artillery Senior Sergeant Name Role Phone Gail Mari NP Primary Care Provider [phone] Encounter Details Date Type Department Care Team (Late st Contact Info) Description 02/28/2017 Conversion Encounter [facility] - [address] [address] Social History Tobacco Use Types Packs/Day Years [...] on filedocumented in this encounter Care Teams Field Artillery Senior Sergeant Relationship Specialty Start Date End Date Gail Mari NP PCP - General 02/22/17 08/11/20 documented as of this encounter
--- OUTSIDE RECORDS SUMMARY | 2024-10-14 09:19 | XMS_ITS | Encounter Summary ---
Author Organization [facility] Address [address] [place], [place] [address] Phone Care Team Providers Care Carpenter Refrigerator Name Role Phone Gail Mari NP Primary Care Provider [phone] Encounter Details Date Type Department Care Team (Late st Contact Info) Description 01/04/2012 [place] [facility] [place] [address] [place] [address] Family Medicine, Physician [address] [place] [address] Social History Tobacco Use Types Packs/Day Years [...] on filedocumented in this encounter Care Teams Carpenter Refrigerator Relationship Specialty Start Date End Date Gail Mari NP PCP - General 02/22/17 08/11/20 documented as of this encounter
--- OUTSIDE RECORDS SUMMARY | 2024-10-14 09:19 | XMS_ITS | Clinical Summary ---
Author Organization [facility] Address [address] [place] [address] Phone Care Team Providers Care Bakery And Deli Sales Manager Name Role Phone Unavailable Primary Care Provider [...] 08/25/2015 Meningococcal Vaccine Completed 11/11/2018, 015 Insurance [facility] NON PCC
== END 2024-10-14 08:17 | disposition home or self-care (01) ==
LOC: HO.LAB 08:16
PROVIDERS: PCP Nurse Practitioner Family; Visit Provider Nurse Practitioner Family
DX: Z00.01 Encounter for general adult medical examination with abnormal findings (principal); Z23 Encounter for immunization; F41.1 Generalized anxiety disorder; F33.1 Major depressive disorder, recurrent, moderate; R63.6 Underweight; R30.0 Dysuria; M26.622 Arthralgia of left temporomandibular joint
CPT/HCPCS: 81025; 90471; 90472; 90656; 90715; 96127; 99212; 99395

== ENCOUNTER 2024-10-14 09:55 | Outpatient (REF) | payer OTHER, SELFPAY ==
--- OUTSIDE RECORDS SUMMARY | 2024-10-14 11:19 | XMS_ITS | Encounter Summary ---
Author Organization [facility] Address [address] [place], [place] [address] Phone Care Team Providers Care Stone Layout Marker Name Role Phone Gail Mari NP Primary Care Provider [phone] Encounter Details Date Type Department Care Team (Late st Contact Info) Description 09/09/2014 Documentation [facility] [place] [address] [place] [address] Family Medicine, Physician [address] [place] [address] Social History Tobacco Use Types Packs/Day Years [...] on filedocumented in this encounter Care Teams Stone Layout Marker Relationship Specialty Start Date End Date Gail Mari NP PCP - General 02/22/17 08/11/20 documented as of this encounter
--- OUTSIDE RECORDS SUMMARY | 2024-10-14 11:19 | XMS_ITS | Encounter Summary ---
Author Organization [facility] Address [address] [place] [address] Phone Care Team Providers Care Sustain Engineer Name Role Phone Gail Mari NP Primary Care Provider [phone] Encounter Details Date Type Department Care Team (Late st Contact Info) Description 02/28/2017 Conversion Encounter [facility] - [address] [address] Social History Tobacco Use Types Packs/Day Years [...] on filedocumented in this encounter Care Teams Sustain Engineer Relationship Specialty Start Date End Date Gail Mari NP PCP - General 02/22/17 08/11/20 documented as of this encounter
--- OUTSIDE RECORDS SUMMARY | 2024-10-14 11:19 | XMS_ITS | Encounter Summary ---
Author Organization [facility] Address [address] [place], [place] [address] Phone Care Team Providers Care Cook Jelly Name Role Phone Gail Mari NP Primary Care Provider [phone] Encounter Details Date Type Department Care Team (Late st Contact Info) Description 01/04/2012 [place] [facility] [place] [address] [place] [address] Family Medicine, Physician [address] [place] [address] Social History Tobacco Use Types Packs/Day Years [...] on filedocumented in this encounter Care Teams Cook Jelly Relationship Specialty Start Date End Date Gail Mari NP PCP - General 02/22/17 08/11/20 documented as of this encounter
--- OUTSIDE RECORDS SUMMARY | 2024-10-14 11:19 | XMS_ITS | Clinical Summary ---
Author Organization [facility] Address [address] [place] [address] Phone Care Team Providers Care Specialist Employee Labor Relations Name Role Phone Unavailable Primary Care Provider [...] 08/25/2015 Meningococcal Vaccine Completed 11/11/2018, 015 Insurance [facility] NON PCC
[2024-10-14 11:31] LABS: Hematocrit 38.2 % (37.0-47.0); Mean Corpuscular HGB Conc 31.4 g/dl (31.0-35.0); Mean Corpuscular Hemoglobin 27.2 pg (27.0-33.0); Mean Corpuscular Volume 86.6 fL (80.0-98.0); Mean Platelet Volume 12.3 fL (9.4-12.3); Platelet Count 201 X10*3/uL (160-400); Red Blood Count 4.41 X10*6/uL (4.20-5.50); Red Cell Distribution Width 13.5 % (11.0-16.0); White Blood Count 3.5 X10*3/uL (4.8-10.8)
[2024-10-14 11:48] LABS: Alanine Aminotransferase 16 U/L (0-31); Albumin Level 4.8 g/dL (3.5-5.0); Alkaline Phosphatase 48 U/L (39-117); Anion Gap 10 (12-20); Aspartate Amino Transferase 21 U/L (5-31); Bilirubin Total 0.4 mg/dL (0.0-1.0); Blood Urea Nitrogen 10 mg/dL (9-16); Calcium 9.5 mg/dL (8.4-10.2); Carbon Dioxide 26 mmol/L (22-29); Chloride 108 mmol/L (96-108); Cholesterol 131 mg/dL (<200); Estimated Glomerular Filt Rate > 60; Glucose Random 88 mg/dL (60-115); HDL Cholesterol 51 mg/dL (>40); LDL Cholesterol Calculated 73 mg/dL (<100); Potassium 3.9 mmol/L (3.3-5.1); Sodium 140 mmol/L (135-145); Triglycerides 39 mg/dL (<150)
[2024-10-14 11:50] LABS: Estimated Average Glucose 103 mg/dL; Hemoglobin A1C 106.6071 umol/L; Hemoglobin A1c % 5.2 % (<6.0); Total Hemoglobin (HGBA1C) 3174.0778 umol/L
[2024-10-14 12:07] LABS: Ferritin 8 ng/mL (10-122); TSH reflex Free T4 2.11 uIU/mL (0.32-4.0); Vitamin D 25-OH Total 12.6 ng/mL (>30)
[2024-10-14 12:49] LABS: Folate 9.2 ng/mL (> or = 4.0); Vitamin B12 396 pg/mL (200-900)
[2024-10-14 13:33] LABS: CT PCR NOT DETECTED (Not Detect.); NG PCR NOT DETECTED (Not Detect.)
[2024-10-14 14:19] LABS: Appearance Urine Clear; Color Urine Straw; Glucose Urine UA Negative (Negative); Leukocyte Esterase Urine Negative (Negative); Nitrite Urine Negative (Negative); Specific Gravity - Urine <= 1.005 (1.005-1.025); Urine Blood Negative (Negative); Urine Ketones Negative (Negative); Urine Protein Negative (Neg-Trace)
[2024-10-14 14:49] LABS: Creatinine Urine 14.05 mg/dL; Microalbumin Urine < 5.0 mg/L
== END 2024-10-14 09:56 | disposition home or self-care (01) ==
LOC: HO.WFDLDS 09:55
PROVIDERS: Visit Provider Nurse Practitioner Family
DX: R30.0 Dysuria (principal)
CPT/HCPCS: 36415; 80053; 80061; 81003; 82306; 82570; 82607; 82728; 82746; 83036; 84443; 85027; 87491; 87591

== ENCOUNTER 2024-10-19 13:48 | Outpatient (AMB) | payer OTHER, SELFPAY ==
--- NOTE | 2024-10-19 13:50 | A.OFFPC_ITS ---
Intake Visit Reasons: review her labs Intake Note: telehealth follow up on labs Second Steward Required: No Allergies No Known Allergies Allergy (Verified 10/19/24 14:48) Medication List - Last Reconciled 10/19/24 by SHWETHA Adair-GIAFNRANCO fluoxetine (Prozac) 10 mg PO DAILY Tobacco use date assessed: 10/19/24 Dental Screening Dental Screen Date: 10/19/24 Did you have a dental visit in the last 12 months?: Yes Did you have a dental problem in the last 6 months where you did not have access to dental care?: No Was dental information given to patient?: Patient has dentist HPI HPI Comments History of Present Illness Details 23-year-old female with migraines, scoli osis, MDD, DAY, underweight, scoliosis, Iron def, Vit D def, leukopenia Social: brother & sister; lives w/ Mom. 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 The patient has vitamin-D deficiency, low ferritin and leukopenia. Her WBCs are 3.5. The last time she had a CBC drawn at [facility] was back in 2021. At that time her WBC was 4.0. She does have overall poor eating with history of bingeing and purging. She reports that these symptoms have improved however her labs are concerning. She denies any overt blood loss. She denies any chest pain or indio rtness of breath. Results Labs from October 15, 2023 WBC 3.5, ferritin 8 vitamin-D 12.6, otherwise labs within normal limits to include urinalysis and gonorrhea and chlamydia screening Assessment and Plan The plan will be to start her on a multivitamin with iron and vitamin D3 125 mcg tablet daily. Okay to take together. We will need to repeat her labs in 3 months' time. These lab orders have been placed today. I would like to schedule a telehealth follow up to review these results after they are drawn. I will have my office contact her for an appointment. Her and I have an appointment set up in another few weeks to follow up on the Prozac which was initiated to help with her mood and eating disorder. I let her know that should she run into any issues or have any problems or concerns that she could address them at this visit or certainly she can send me a portal message or give me a call. All questions were answered. Education about the side effects of the iron provided today. If a repeat labs are not any better can consider referral to Hematology. However I do think these lab results are result of restrictive eating disorder. Telehealth Attestation The patient has been explained that this is an interactive (audio/video) telehealth encounter and what that consists of. The patient understands and wishes to proceed. [employer] platform was used. Total time spent caring for the patient today was 15 minutes. This includes time spent before the visit reviewing the chart, time spent during the visit, and time spent after the visit on documentation, reviewing laboratory results, diagnostic imaging, medications, performing a medically necessary evaluation, counseling on diagnoses, care coordination, ordering appropriate tests, ordering appropriate medications, review of tests performed by other providers, reporting test results with the patient, communication with other healthcare providers. [facility] Medical History (Updated 10/19/24 @ 16:36 by Jessica Kaufman [facility]) Migraines Surgical History (Updated 10/04/23 @ 12:46 by Karis Rosas CMA) No pertinent past surgical history Family History (Updated 10/04/23 @ 12:45 by Karis Rosas CMA) Father Diabetes Other Mental health disorder Social History (Updated 10/04/23 @ 12:47 by Karis Rosas CMA) Household Members: Family Both parents involved: Yes Housing: House Are you a primary critical care specialist to a significant other at home: No Do you presently have visiting nurse or other home services: No 75 years or older and lives alone: No Alcohol intake: never Patient Tobacco Use Status: Never used Tobacco e-Cigarette/Vaping Use: Never Used Substance Use Type: Marijuana service: No Current occupational status: employed 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 Leonidas Tidwell, Inge Anthony, Prakash Langston and colleagues, with an educational koki from [employer]. Physical exam (Primary Care) Tobacco/Smoking Status: Tobacco use Status Tobacco use date assessed 10/19/24 10/19/24 14:49 Patient Tobacco Use Status Never used Tobacco 10/19/24 13:51 e-Cigarette/Vaping Use Never Used 10/19/24 13:51 Thrive Assessment: Date of Thrive Assessment Date Thrive assessed 10/14/24 10/19/24 13:51 Telehealth Telehealth Telehealth Platform: Telephone Location of provider rendering services: practice address Location of patient: address on file Patient Identification confirmed using: Name, : Yes Telehealth method: voice only Patient verbally consented to treatment: Yes Patient verbally consented to billing insurance company: Yes Patient informed of any privacy concerns related to visit: Yes Coding Level of Care Code Tele Est Pt Level 2 (27333) Complex EM visit Add On G2211 Diagnoses Iron deficiency E61.1 Leukopenia, unspecified type D72.819 Leukopenia type: unspecified Vitamin D deficiency E55.9 Assessment & Plan Assessment & Plan (1) Iron deficiency: Code(s): E61.1 - Iron deficiency Category: Medical (2) Leukopenia: Code(s): D72.819 - Decreased white blood cell count, unspecified Category: Medical Qualifiers: Leukopenia type: unspecified Qualified Code(s): D72.819 - Decreased white blood cell count, unspecified (3) Vitamin D deficiency: Code(s): E55.9 - Vitamin D deficiency, unspecified Category: Medical Plan . Orders: Orders Complete Blood Count no Diff 3 Months D72.819 - Decreased white blood cell count, unspecified, E55.9 - Vitamin D deficiency, unspecified, E61.1 - Iron deficiency Vitamin D 25-OH Total 3 Months D72.819 - Decreased white blood cell count, unspecified, E55.9 - Vitamin D deficiency, unspecified, E61.1 - Iron deficiency Ferritin 3 Months D72.819 - Decreased white blood cell count, unspecified, E55.9 - Vitamin D deficiency, unspecified, E61.1 - Iron deficiency Medications: New multivitamin with iron 1 tab PO DAILY 90 tabs 2RF cholecalciferol (vitamin D3) 125 mcg PO DAILY 90 caps 2RF
--- OUTSIDE RECORDS SUMMARY | 2024-10-19 16:30 | XMS_ITS | Encounter Summary ---
Author Organization [facility] Address [address] [place] [id number] Phone Care Team Providers Care Pens And Pencils Repairer Name Role Phone Gail Mari NP Primary Care Provider [phone] Encounter Details Date Type Department Care Team (Late st Contact Info) Description 09/09/2014 Documentation [facility] [place] Family Medicine [address] [place] [address] Family Medicine, Physician [address] [place] [address] Social History Tobacco Use Types Packs/Day Years [...] on filedocumented in this encounter Care Teams Pens And Pencils Repairer Relationship Specialty Start Date End Date Gail Mari NP PCP - General 02/22/17 08/11/20 documented as of this encounter
--- OUTSIDE RECORDS SUMMARY | 2024-10-19 16:30 | XMS_ITS | Clinical Summary ---
Author Organization [facility] Address [address] [place] [address] Phone Care Team Providers Care Planograph Operator Name Role Phone Unavailable Primary Care Provider [...] 08/25/2015 Meningococcal Vaccine Completed 11/11/2018, 015 Insurance [facility] NON PCC
--- OUTSIDE RECORDS SUMMARY | 2024-10-19 16:30 | XMS_ITS | Encounter Summary ---
Author Organization [facility] Address [address] [place] [address] Phone Care Team Providers Care Lead Clinical Research Coordinator Name Role Phone Gail Mari NP Primary Care Provider [phone] Encounter Details Date Type Department Care Team (Late st Contact Info) Description 01/04/2012 [place]ation [facility] [place] [address] [place] [address] Family Medicine, Physician [address] [place] [address] Social History Tobacco Use Types Packs/Day Years [...] on filedocumented in this encounter Care Teams Lead Clinical Research Coordinator Relationship Specialty Start Date End Date Gail Mari NP PCP - General 02/22/17 08/11/20 documented as of this encounter
--- OUTSIDE RECORDS SUMMARY | 2024-10-19 16:30 | XMS_ITS | Encounter Summary ---
Author Organization [facility] Address [address] [place] [address] Phone Care Team Providers Care Corporate Compliance Director Name Role Phone Gail Mari NP Primary Care Provider [phone] Encounter Details Date Type Department Care Team (Late st Contact Info) Description 02/28/2017 Conversion Encounter [facility] - [address] [address] Social History Tobacco Use Types Packs/Day Years [...] on filedocumented in this encounter Care Teams Corporate Compliance Director Relationship Specialty Start Date End Date Gail Mari NP PCP - General 02/22/17 08/11/20 documented as of this encounter
== END 2024-10-19 16:37 | disposition home or self-care (01) ==
LOC: HO.HMCFM 13:48
PROVIDERS: PCP Nurse Practitioner Family; Visit Provider Nurse Practitioner Family
DX: E61.1 Iron deficiency (principal); D72.819 Decreased white blood cell count, unspecified; E55.9 Vitamin D deficiency, unspecified

== ENCOUNTER → 2024-10-19 13:48 | Outpatient (BNVA) | payer OTHER, SELFPAY | PROVIDERS: PCP Nurse Practitioner Family; Visit Provider Nurse Practitioner Family | DX: Z13.89 Encounter for screening for other disorder (principal) ==

== ENCOUNTER 2024-12-28 15:38 | Outpatient (AMB) | payer OTHER, SELFPAY ==
--- NOTE | 2024-12-28 15:40 | MHC.PC.OV ---
Vital Signs 12/28/24 16:17 Height 5 ft 4 in Weight 92 lb BMI 15.8 Intake Visit Reasons: 6 week telehealth fu start prozac Intake Note: Telehealth follow up on med. Also Patient needs referral for obgyn Trash Man Required: No Allergies No Known Allergies Allergy (Verified 12/28/24 16:06) Medication List - Last Reconciled 12/28/24 by CODY AdairP- cholecalciferol (vitamin D3) 125 mcg PO DAILY fluoxetine (Prozac) 10 mg PO DAILY multivitamin with iron 1 tab PO DAILY Tobacco use date assessed: 12/28/24 Dental Screening Dental Screen Date: 12/28/24 Did you have a dental visit in the last 12 months?: Yes Did you have a dental problem in the last 6 months where you did not have access to dental care?: No Was dental information given to patient?: Patient has dentist HPI HPI Comments History of Present Illness Details 24-year-old female with migraines, scoliosis, MDD, DAY, underweight, scoliosis Social: brother & sister; lives w/ Mom. 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 - Fluoxetine initiated for mood stabilization; mood is partly improved but still challenging. - Weekly counseling sessions in place, beneficial to patient. - Weight decreased to 88.4 pounds; current weight is 92 pounds. - Diet includes protein shakes and three meals per day; effort on weight gain noted. - Suicidal ideation managed (has thoughts and plan of jumping in front of train or jumping off roof), however she has a safety plan in place w/ counseling. I reviewed Partial hospitalization , for which she declined; patient experiences social anxiety. - Sleep disturbances prevalent sleeping 3 hours/night. Review of Systems - Psychiatric: Reports improvement in mood with occasional difficulties. Denies current suicidal ideation with active safety plan. Reports social anxiety. - Nutritional: Reports significant past weight loss and ongoing effort to regain weight through dietary adjustments. - Sleep: Reports insomnia with four hours of sleep nightly and difficulty resting. - General: Denies current harm to self or others. Assessment and Plan 1. Major Depressive Disorder - Increase fluoxetine to 20 mg daily. - Continue weekly counseling. Reviewed crisis and PHP. Declined both. Contracts for safety 2. Insomnia - Recommend melatonin up to 3 mg nightly. 3. Anorexia - Maintain dietary modifications for weight gain. Due for repeat labs week of January and fu visit 01/20 Reminded of this today Telehealth Attestation The visit was conducted via telehealth. I have confirmed and verified the accuracy of the documentation based on the patient-physician interaction through video/telephonic means during this visit. The patient has been explained that this is an interactive (audio/video) telehealth encounter and what that consists of. The patient understands and wishes to proceed. [employer] platform was used. Total time spent caring for the patient today was 22 minutes. This includes time spent before the visit reviewing the chart, time spent during the visit, and time spent after the visit on documentation, reviewing laboratory results, diagnostic imaging, medications, performing a medically necessary evaluation, counseling on diagnoses, care coordination, ordering appropriate tests, ordering appropriate medications, review of tests performed by other providers, reporting test results with the patient, communication with other healthcare providers. [facility] Medical History (Updated 12/28/24 @ 16:19 by Jessica Kaufman [facility]) Migraines Surgical History (Updated 10/04/23 @ 12:46 by Karis Rosas [facility]) No pertinent past surgical history Family History (Updated 10/04/23 @ 12:45 by Karis Rosas CMA) Father Diabetes Other Mental health disorder Social History (Updated 10/04/23 @ 12:47 by Karis Rosas CMA) Household Members: Family Both parents involved: Yes Housing: House Are you a primary pediatric care coordinator to a significant other at home: No Do you presently have visiting nurse or other home services: No 75 years or older and lives alone: No Alcohol intake: never Patient Tobacco Use Status: Never used Tobacco e-Cigarette/Vaping Use: Never Used Substance Use Type: Marijuana service: No Current occupational status: employed 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 Leonidas Tidwell, Inge Anthony, Prakash Langston and colleagues, with an educational koki from [employer]. Physical exam (Primary Care) Tobacco/Smoking Status: Tobacco use Status Tobacco use date assessed 12/28/24 12/28/24 15:42 Patient Tobacco Use Status Never used Tobacco 12/28/24 15:42 e-Cigarette/Vaping Use Never Used 12/28/24 15:42 Thrive Assessment: Date of Thrive Assessment Date Thrive assessed 10/14/24 12/28/24 15:42 Telehealth Telehealth Telehealth Platform: [employer] Location of provider rendering services: practice address Location of patient: address on file Patient Identification confirmed using: Name, : Yes Telehealth method: voice only Patient verbally consented to treatment: Yes Patient verbally consented to billing insurance company: Yes Patient informed of any privacy concerns related to visit: Yes Minutes spent on Phone/Video with Pt.: 10 Coding Level of Care Code Tele Est Pt Level 3 (76392) Complex EM visit Add On G2211 Diagnoses DAY (generalized anxiety disorder) F41.1 Moderate episode of recurrent major depressive disorder F33.1 Major depression episode severity: moderate Underweight on examination R63.6 Suicidal ideation R45.851 Assessment & Plan Assessment & Plan (1) DAY (generalized anxiety disorder): Comment: see MDD Code(s): F41.1 - Generalized anxiety disorder Category: Medical (2) MDD (major depressive disorder), recurrent episode: Code(s): F33.9 - Major depressive disorder, recurrent, unspecified Category: Medical Qualifiers: Major depression episode severity: moderate Qualified Code(s): F33.1 - Major depressive disorder, recurrent, moderate (3) Underweight on examination: Comment: with eating disorder behaviors of restriction and binging. counseling Code(s): R63.6 - Underweight Category: Medical (4) Suicidal ideation: Code(s): R45.851 - Suicidal ideations Category: Medical Plan . Medications: New fluoxetine (Prozac) 20 mg PO DAILY 30 caps 1RF melatonin 3 mg PO BEDTIME PRN 30 caps 1RF sleep Discontinued fluoxetine (Prozac) Discontinued Reason: Doctor's Order 10 mg PO DAILY 30 caps 1RF Patient Instructions: National Suicide and Crisis Lifeline: Available 24 hours a day, 7 days a week, 365 days a year Dial 988 with any telephone to speak to someone immediately [facility] [address] [place] [phone] , Walk ins [facility] (Mental / Behavioral health therapist: [address] [place] [address] [facility] at [facility]: [address] [place] [address] Open from 10am - 12pm (walk ins [place]) [facility] Crisis Services: [address] [place] [address] Walk in hours from 10am - 12pm Behavioral health Network: [address] [place] [address] [place] [address] [phone] Saturday through Saturday 8am - 8pm Saturday and Saturday 9am - 5pm Crisis Hotlines Suicide prevention, domestic violence, and other crisis hotlines for youth, young adults, and their friends and families. [employer] Safeline: The National Runaway Safeline helps youth who have run away, are thinking about running away, or who already ran away but are ready to come home. Parents and guardians can also contact the hotline if they are worried about their child running away or if their child has already left home. The hotline is available 24 hours a day, seven days a week. Youth, parents, and guardians can also use the online chat feature on the [employer]'s website to ask for help and get support, [place] [address]. National Runaway Safeline National Suicide Prevention Lifeline: The National Suicide Prevention Lifeline is a network of local crisis centers that are available 04/02 to provide support for youth and adults who are in any kind of emotional crisis. In addition to the main hotline number listed above, there are several other numbers to call depending on your needs: Irish Language: Deaf and Hard of Hearin1-357.323.2431 Veterans: Disaster Distress: Anyone can also use their online chat feature on their website. National Suicide Prevention Lifeline [facility] Helpline: The [facility] Helpline is available to anyone in [place] who is need of emotional support. Anyone can call or text the helpline to receive help from specially trained volunteers. [place] high school and college students can also get online support through the IMHear_ program. For high school students, volunteers ages 15-18 are available Saturday- from 6-9PM. For college students, IMHear_ is available Saturday-Saturday from 5-9PM. The Sedrick Project - The Sedrick Project is a 04/02 crisis intervention and suicide prevention hotline for LGBTQ youth. Youth can also text Sedrick to for support, or use the online chat feature on the [employer] Project's website. TrevorText is available Saturday-Saturday between 3-10PM. TrevorChat is available seven days a week between 3-10PM. SafeLink: SafeLink is for anyone who is being affected by domestic violence or dating violence. Volunteers at SafeLink speak Kyrgyz and Irish, and [employer] also has a service that can provide translation in more than 130 languages. TTY:
[2024-12-28 16:17] VITALS: BMI 15.8
--- OUTSIDE RECORDS SUMMARY | 2024-12-28 17:30 | XMS_ITS | Encounter Summary ---
Author Organization [facility] Address [address] [place] [address] Phone Care Team Providers Care Automatic Clipper And Stripper Name Role Phone Gail Mari NP Primary Care Provider Encounter Details Date Type Department Care Team (Late st Contact Info) Description 09/09/2014 Documentation [facility] [place] Family Medicine [address] [place] [address] Family Medicine, Physician [address] [place] [address] Social History Tobacco Use Types Packs/Day Years [...] on filedocumented in this encounter Care Teams Automatic Clipper And Stripper Relationship Specialty Start Date End Date Gail Mari NP PCP - General 02/22/17 08/11/20 documented as of this encounter
== END 2024-12-28 16:14 | disposition home or self-care (01) ==
LOC: HO.HMCFM 15:38
PROVIDERS: PCP Nurse Practitioner Family; Visit Provider Nurse Practitioner Family
DX: F41.1 Generalized anxiety disorder (principal); F33.1 Major depressive disorder, recurrent, moderate; R63.6 Underweight; R45.851 Suicidal ideations

== ENCOUNTER → 2024-12-28 15:38 | Outpatient (BNVA) | payer OTHER, SELFPAY | PROVIDERS: PCP Nurse Practitioner Family; Visit Provider Nurse Practitioner Family ==

== ENCOUNTER 2025-01-04 00:04 | Emergency (ER) | payer OTHER, SELFPAY ==
[2025-01-04 00:06] VITALS: BP 113/66; PULSE 77; RESP 18; TEMP 36.6; O2SAT 96; BMI 16.1
--- NOTE | 2025-01-04 01:41 | PC.NURSE ---
left from wr at unknown time, per registration they were made aware.
== END 2025-01-04 01:42 | disposition left against medical advice (07) ==
PROVIDERS: Emergency Provider Emergency Medicine; PCP Nurse Practitioner Family
DX: Z91.199 Patient's noncompliance with other medical treatment and regimen due to unspecified reason (principal)
CPT/HCPCS: 99281

== ENCOUNTER 2025-01-13 13:25 | Outpatient (REF) | payer OTHER, SELFPAY ==
--- OUTSIDE RECORDS SUMMARY | 2025-01-13 14:02 | XMS_ITS | Encounter Summary ---
Author Organization [facility] Address [address] [place] [phone] Phone Care Team Providers Care Craps Manager Name Role Phone Gail Mari NP Primary Care Provider Encounter Details Date Type Department Care Team (Late st Contact Info) Description 09/09/2014 Documentation [facility] [place] Family Medicine [address] [place] [address] Family Medicine, Physician [address] [place] [address] Social History Tobacco Use Types Packs/Day Years [...] on filedocumented in this encounter Care Teams Craps Manager Relationship Specialty Start Date End Date Gail Mari NP PCP - General 02/22/17 08/11/20 documented as of this encounter
[2025-01-13 17:39] LABS: Hematocrit 39.2 % (37.0-47.0); Hemoglobin 12.2 g/dl (12.0-16.0); Mean Corpuscular HGB Conc 31.1 g/dl (31.0-35.0); Mean Corpuscular Hemoglobin 27.7 pg (27.0-33.0); Mean Corpuscular Volume 89.1 fL (80.0-98.0); NRBC Abs Auto 0.000 X10*3/uL (0.0-0.012); NRBC Pct Auto 0.0 /100WBC (0.0-0.2); Platelet Count 231 X10*3/uL (160-400); Red Blood Count 4.40 X10*6/uL (4.20-5.50); White Blood Count 4.3 X10*3/uL (4.8-10.8)
[2025-01-13 18:13] LABS: Ferritin 10 ng/mL (10-122)
== END 2025-01-13 13:26 | disposition home or self-care (01) ==
LOC: HO.WFDLDS 13:25
PROVIDERS: Visit Provider Nurse Practitioner Family
DX: D72.819 Decreased white blood cell count, unspecified (principal); E61.1 Iron deficiency; E55.9 Vitamin D deficiency, unspecified
CPT/HCPCS: 36415; 82306; 82728; 85027

== ENCOUNTER 2025-01-20 15:41 | Outpatient (AMB) | payer OTHER, SELFPAY ==
--- NOTE | 2025-01-20 15:36 | A.OFFPC_ITS ---
Intake Visit Reasons: repeat labs leukopenia, vit d def, iron def Intake Note: Follow up lab results Global Ceo Required: No Allergies No Known Allergies Allergy (Verified 01/20/25 15:59) Medication List - Last Reconciled 01/20/25 by Jessica Kaufman COURTESY CLERK- cholecalciferol (vitamin D3) 125 mcg PO DAILY fluoxetine (Prozac) 20 mg PO DAILY melatonin 3 mg PO BEDTIME PRN multivitamin with iron 1 tab PO DAILY Tobacco use date assessed: 12/28/24 Dental Screening Dental Screen Date: 12/28/24 HPI HPI Comments History of Present Illness Details 24-year-old female with migraines, scoli osis, MDD, DAY, underweight, scoliosis Social: brother & sister; lives w/ Mom. 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 - Vitamin D deficiency managed with supp lements; improvement noted; plan to reduce dose following normalization. - Low iron stores addressed with multivi tamins; current state on the low end of normal; plans to maintain current regimen. - Reports major depressive disorder and generalized anxiety disorder; managed with fluoxetine 20 mg with noted mood improvement. - Incidents of self-harm, notably burnin g 2-3 weeks ago; reports occasional intrusive thoughts. - History of sleep disturbances; previou s use of melatonin 3 mg with unsatisfactory results. Would like to try increased dose of melatonin OTc - Cont active w/ counseling, appt next w ee - Contracts for safety. Review of Systems - Behavioral: Reports mood stabilization , occasional thoughts of self-harm, self-inflicted burn 2-3 weeks ago. - Sleep: Reports sleep disturbance, trent tonin 3 mg minimally effective. - Musculoskeletal: Reports self-inflicte d burn on the thigh. Results see below Assessment and Plan 1. Vitamin D Deficiency - Reduce dose to 50 mcg, from 125mcg, 2. Anemia improved - Continue multivitamin with iron. 3. Major Depressive Disorder and General ized Anxiety Disorder - Increase fluoxetine to 40 mg, new pres cription sent. Cont w/ counseling recommended PHP declined cRisis info provided. 4. Sleep Disturbance - Trial higher agvk-ltl-nublpin doses of melatonin. FU in 8 weeks,sooner PRN Telehealth Attestation This service was provided via telehealth due to patient preference for remote consultation. The patient has been explained that this is an interactive (audio/video) telehealth encounter and what that consists of. The patient understands and wishes to proceed. [employer] platform was used. Total time spent caring for the patient today was 21 minutes. This includes time spent before the visit reviewing the chart, time spent during the visit, and time spent after the visit on documentation, reviewing laboratory results, diagnostic imaging, medications, performing a medically necessary evaluation, counseling on diagnoses, care coordination, ordering appropriate tests, ordering appropriate medications, review of tests performed by other providers, reporting test results with the patient, communication with other healthcare providers. FOR[facility]LY [facility] Medical History (Updated 01/20/25 @ 16:09 by Jessica Kaufman [facility]) Migraines Surgical History No pertinent past surgical history Family History Father Diabetes Other Mental health disorder Social History (Updated 01/20/25 @ 15:42 by Honey Adam CMA) Household Members: Family Both parents involved: Yes Housing: House Are you a primary rn wound care to a significant other at home: No Do you presently have visiting nurse or other home services: No 75 years or older and lives alone: No Alcohol intake: current Patient Tobacco Use Status: Current someday Tobacco user Cigarettes Per Day: 1 Years Smoked: 1 one cigarette every six months Packs per year/per ci.00 e-Cigarette/Vaping Use: Never Used Second Hand Smoke Exposure: No Use of substances other than those prescribed or required for medical reasons: Yes Substance Use Type: Marijuana service: No Current occupational status: employed 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 How often do you have a drink containing alcohol?: 2-4 times a month 2. How many drinks containing alcohol do you have on a typical day when you are drinking?: 5 or 6 3. How often do you have six or more drinks on one occasion?: Never Total Score: 4 DAY-7 AMB Questionnaire DAY-7 Date DAY - 7 assessed: 10/14/24 Source: Developed by Drs. Leonidas Tidwell, Inge Anthony, Prakash Langston and colleagues, with an educational koki from [employer]. Physical exam (Primary Care) Tobacco/Smoking Status: Tobacco use Status Tobacco use date assessed 12/28/24 01/20/25 15:38 Patient Tobacco Use Status Current someday Tobacco 01/20/25 15:43 e-Cigarette/Vaping Use Never Used 01/20/25 15:42 Thrive Assessment: Date of Thrive Assessment Date Thrive assessed 10/14/24 01/20/25 15:38 Telehealth Telehealth Telehealth Platform: [employer] Location of provider rendering services: practice address Location of patient: address on file Patient Identification confirmed using: Name, : Yes Telehealth method: voice only Patient verbally consented to treatment: Yes Patient verbally consented to billing insurance company: Yes Patient informed of any privacy concerns related to visit: Yes Minutes spent on Phone/Video with Pt.: 11 Results Reviewed Results Reviewed: RUN: 01/20/25 1559 PAGE 1 [facility] [address] [place] [id number] Patient Access Manager: Pedro Modi M.D. Specimen Inquiry Name: Rosey Lowery Age/Sex: 24/F : 2000 Unit#: [id number] Attend Dr: Jessica Kaufman COURTESY CLERK-BC Re01/13/25 Status: DEP REF Location: [facility] Disch: SPEC : [id number] DEMI: 01/13/25 STATUS: COMP REQ : [id number] RECD: 01/13/[address] [facility] [address]: Jessica Kaufman COURTESY CLERK- COMP: 01/13/25 ENTERED: 01/13/[address] [facility] [address]: ORDERED: CBC No Diff Test Result Flag Reference WBC 4.3 L 4.8-10.8 X10*3/uL RBC 4.40 4.20-5.50 X10*6/uL HGB 12.2 12.0-16.0 g/dl HCT 39.2 37.0-47.0 % MCV 89.1 80.0-98.0 fL MCH 27.7 27.0-33.0 pg MCHC 31.1 31.0-35.0 g/dl RDW 15.0 11.0-16.0 % PLT 231 160-400 X10*3/uL MPV 11.6 9.4-12.3 fL NRBC Pct Auto 0.0 0.0-0.2 /100WBC NRBC Abs Auto 0.000 0.0-0.012 X10*3/uL Test Result Flag Reference Ferritin 10 10-122 ng/mL Vitamin D 25-OH 73.8 >30 ng/mL Health Based Reference Values* Coding Level of Care Code Tele Est Pt Level 3 (05188) Complex EM visit Add On G2211 Diagnoses DAY (generalized anxiety disorder) F41.1 Moderate episode of recurrent major depressive disorder F33.1 Major depression episode severity: moderate Suicidal ideation R45.851 Vitamin D deficiency E55.9 Iron deficiency E61.1 Leukopenia, unspecified type D72.819 Leukopenia type: unspecified Assessment & Plan Assessment & Plan (1) DAY (generalized anxiety disorder): Comment: see MDD Code(s): F41.1 - Generalized anxiety disorder Category: Medical (2) MDD (major depressive disorder), recurrent episode: Code(s): F33.9 - Major depressive disorder, recurrent, unspecified Category: Medical Qualifiers: Major depression episode severity: moderate Qualified Code(s): F33.1 - Major depressive disorder, recurrent, moderate (3) Suicidal ideation: Code(s): R45.851 - Suicidal ideations Category: Medical (4) Vitamin D deficiency: Code(s): E55.9 - Vitamin D deficiency, unspecified Category: Medical (5) Iron deficiency: Code(s): E61.1 - Iron deficiency Category: Medical (6) Leukopenia: Code(s): D72.819 - Decreased white blood cell count, unspecified Category: Medical Qualifiers: Leukopenia type: unspecified Qualified Code(s): D72.819 - Decreased white blood cell count, unspecified Plan . Medications: New cholecalciferol (vitamin D3) 50 mcg PO DAILY 90 caps 0RF fluoxetine (Prozac) 40 mg PO DAILY 30 caps 1RF Discontinued fluoxetine (Prozac) Discontinued Reason: Patient Completed Course 20 mg PO DAILY 30 caps 1RF cholecalciferol (vitamin D3) Discontinued Reason: Patient Completed Course 125 mcg PO DAILY 90 caps 2RF Patient Instructions: National Suicide and Crisis Lifeline: Available 24 hours a day, 7 days a week, 365 days a year Dial 988 with any telephone to speak to someone immediately [address] [address] , [facility] (Mental / Behavioral health therapist: [address] [place] [address] [facility]: [address] [place] [address] Open from 10am - 12pm ([facility]ional [facility]) [facility] Crisis Services: [address] [place] [address] Walk in hours from 10am - 12pm Behavioral health Network: [address] [place] [address] [address] [place] [address] Saturday through Saturday 8am - 8pm Saturday and Saturday 9am - 5pm Crisis Hotlines Suicide prevention, domestic violence, and other crisis hotlines for youth, young adults, and their friends and families. National Runaway Safeline: The National Runaway Safeline helps youth who have run away, are thinking about running away, or who already ran away but are ready to come home. Parents and guardians can also contact the hotline if they are worried about their child running away or if their child has already left home. The hotline is available 24 hours a day, seven days a week. Youth, parents, and guardians can also use the online chat feature on the [facility]'s website to ask for help and get support, [place] [address]. [facility] National Suicide Prevention Lifeline: The National Suicide Prevention Lifeline is a network of local crisis centers that are available 24/ to provide support for youth and adults who are in any kind of emotional crisis. In addition to the main hotline number listed above, there are several other numbers to call depending on your needs: Kosovan Language: Deaf and Hard of [phone] Veterans: Disaster Distress: Anyone can also use their online chat feature on their website. [place] Suicide Prevention Lifeline [facility] Helpline: The [facility] Helpline is available to anyone in [place] who is need of emotional support. Anyone can call or text the helpline to receive help from specially trained volunteers. [place] high school and college students can also get online support through the IMHear_ program. For high school students, volunteers ages 15-18 are available Saturday- from 6-9PM. For college students, IMHear_ is available Saturday-Saturday from 5-9PM. The Sedrick Project - The Sedrick Project is a 04/02 crisis intervention and suicide prevention hotline for LGBTQ youth. Youth can also text Sedrick to for support, or use the online chat feature on the [employer] Project's website. TrevorText is available Saturday-Saturday between 3-10PM. TrevorChat is available seven days a week between 3-10PM. SafeLink: SafeLink is for anyone who is being affected by domestic violence or dating violence. Volunteers at SafeLink speak Marshallese and Kosovan, and [employer] also has a service that can provide translation in more than 130 languages. TTY:
--- OUTSIDE RECORDS SUMMARY | 2025-01-20 15:43 | XMS_ITS | Encounter Summary ---
Author Organization [facility] Address [address] [place] [id number] Phone Care Team Providers Care Metal Tank Builder Name Role Phone Gail Mari NP Primary Care Provider [phone] Encounter Details Date Type Department Care Team (Late st Contact Info) Description 09/09/2014 Documentation [facility] [place] [facility] [address] [place] [address] Family Medicine, Physician [address] [place] [address] Social History Tobacco Use Types Packs/Day Years [...] on filedocumented in this encounter Care Teams Metal Tank Builder Relationship Specialty Start Date End Date Gail Mari NP PCP - General 02/22/17 08/11/20 documented as of this encounter
== END 2025-01-20 16:15 | disposition home or self-care (01) ==
LOC: HO.HMCFM 15:41
PROVIDERS: PCP Nurse Practitioner Family; Visit Provider Nurse Practitioner Family
DX: F41.1 Generalized anxiety disorder (principal); F33.1 Major depressive disorder, recurrent, moderate; R45.851 Suicidal ideations; E55.9 Vitamin D deficiency, unspecified; E61.1 Iron deficiency; D72.819 Decreased white blood cell count, unspecified